=== PATIENT | female | born 2000 | race Caucasian/White ===

== ENCOUNTER 2024-12-26 21:12 | Emergency (ER) | payer OTHER ==
[~2024-12-26] VITALS: Ht 147.3 cm; Wt 71.0 kg
[2024-12-26 21:23] VITALS: O2SAT 99
[2024-12-26 22:30] LABS: CLARITY URINE TURBID (CLEAR); COLOR URINE YELLOW (YELLOW); GLUCOSE URINE NEGATIVE (NEGATIVE); KETONES URINE TRACE (NEGATIVE); LEUKOCYTE ESTERASE URINE 1+ (NEGATIVE); NITRITE URINE NEGATIVE (NEGATIVE); OCCULT BLOOD URINE NEGATIVE (NEGATIVE); PH URINE 6.0 (4.5-8.0); PROTEIN URINE NEGATIVE (NEGATIVE); SPECIFIC GRAVITY URINE 1.025 (1.005-1.030); UROBILINOGEN URINE 0.2 E.U./dL (0.2-1.0)
[2024-12-26 22:37] LABS: BACTERIA URINE 3+; RBC URINE 0-2 /hpf (0-2); SQUAMOUS EPITHELIAL CELL URINE 2+ /lpf (RARE/1+)
[2024-12-26 23:20] LABS: BASOPHILS % 0.7 % (0.0-2.0); EOSINOPHILS % 0.5 % (0.0-5.0); HEMATOCRIT. 39.6 % (36.0-48.0); HEMOGLOBIN. 13.0 g/dL (12.0-16.0); LYMPHOCYTES % 25.0 % (20.0-50.0); MEAN PLATELET VOLUME 8.8 fl (7.4-10.4); MONOCYTES % 6.0 % (2.0-8.0); NEUTROPHILS % 67.8 % (40.0-76.0); PLATELET 269 x1000/uL (130-400); RED BLOOD CELL COUNT 4.40 mill/uL (4.2-5.4); RED CELL DISTRIBUTION WIDTH 14.3 % (11.6-14.6)
[2024-12-26 23:36] LABS: CREATININE 0.7 mg/dL (0.6-1.0); UREA NITROGEN BLOOD 11 mg/dL (9-23)
[2024-12-26 23:38] LABS: ASPARTATE AMINOTRANSFERASE 16 IU/L (<34); BILIRUBIN TOTAL 0.4 mg/dL (0.1-1.0); PROTEIN TOTAL 7.2 g/dL (6.0-8.3)
[2024-12-26 23:54] LABS: HCG SCREEN NEGATIVE
[2024-12-27] MEDS ORDERED: TOPUD MT (00:21)
[2024-12-27] MEDS ORDERED: NITR100C MT (00:21)
[2024-12-27] MEDS ORDERED: DOXY100C5 MT (00:21)
[2024-12-27] MEDS: CEFTRIAXONE SODIUM 500MG VIAL IM ONE (00:39)
[2024-12-27 00:40] VITALS: BP 120/85; PULSE 67; RESP 16; TEMP 37.1; O2SAT 99
[2024-12-28 04:07] LABS: HSV TYPE 2 SPECIFIC AB IGG Non Reactive (Non Reactive)
== END 2024-12-27 00:48 | disposition home or self-care (01) ==
LOC: ER 21:12
DX: N39.0 Urinary tract infection, site not specified (principal); Z11.3 Encounter for screening for infections with a predominantly sexual mode of transmission; Z79.899 Other long term (current) drug therapy
CPT/HCPCS: 99284; 86592; 86695; 86696; 80053; 81003; 81025; 84703; 85025; 36415; 93005; 96372; J0696